=== PATIENT | female | born 1945 | race Caucasian/White ===

== ENCOUNTER 2021-04-30 09:31 | Day surgery (SDC) | payer OTHER ==
[~2021-04-30] VITALS: Ht 167.6 cm; Wt 95.2 kg
[~2021-04-30 09:31] MED LIST: ACET500 PO; AMLO5 PO; ASPI325EC PO; ASPI81CH PO; Aspir 8181 MG PO; BISHYD2.5 PO; BISHYD5 PO; CHOL10002 PO; CHONDROITIN PO; CITA20 PO; CO Q10 200 MG PO; CO Q10200 MG PO; Cholest Off450 MG PO; DICL75ER PO; ERGO400 PO; FLAX PO; FLAX SEED OIL PO; GLUCOSAMINE PO; LUTEIN20 MG PO; METHYLSULFONYLMETHANE PO; MSM500 MG PO; MULTIVITAMIN PO; OPTIFLEX-C400 MG PO; OXYC5 PO; POTASSIUM GLUC500 MG PO; POTASSIUM GLUCONATE PO; TRIPLE FLEX CA1 EACH PO; WOMEN'S DAILY1 EAC2 PO; [UNRECOGNIZED DRUG - REMARK] PO
[2021-04-30] MEDS ORDERED: POTASSIUM GLUCO99 M1 (09:53)
--- NOTE | 2021-04-30 10:04 | NUR ---
04/30/21 1004 DEMETRIUS CHUN PRP DRAWN
--- NOTE | 2021-04-30 11:13 | NUR ---
04/30/21 1113 Zander Back 1 MG EPI ADDED TO EACH OF THE FIRST 3 BAGS OF LR PER ORDER FOR IRRIGATION.
== END 2021-04-30 13:35 | disposition home or self-care (01) ==
LOC: ORSCSDS 09:31
PROVIDERS: Orthopaedic Surgery
PROC: 0RNJ4ZZ Release Right Shoulder Joint, Percutaneous Endoscopic Approach (ICD-10-PCS; principal; 2021-04-30 11:00)
PROC: 0KB50ZZ Excision of Right Shoulder Muscle, Open Approach (ICD-10-PCS; principal; 2021-04-30 11:00)
PROC: 0LQ14ZZ Repair Right Shoulder Tendon, Percutaneous Endoscopic Approach (ICD-10-PCS; principal; 2021-04-30 11:00)
DX: M75.121 Complete rotator cuff tear or rupture of right shoulder, not specified as traumatic (principal); S46.001A Unspecified injury of muscle(s) and tendon(s) of the rotator cuff of right shoulder, initial encounter; M75.21 Bicipital tendinitis, right shoulder; M75.41 Impingement syndrome of right shoulder; M19.011 Primary osteoarthritis, right shoulder; D17.9 Benign lipomatous neoplasm, unspecified; I10 Essential (primary) hypertension; E66.9 Obesity, unspecified; Z68.33 Body mass index [BMI] 33.0-33.9, adult; Z79.899 Other long term (current) drug therapy; Z79.82 Long term (current) use of aspirin
CPT/HCPCS: 88304; C1713; J0171; J0690; J1100; J2001; J2250; J2370; J2405; J2704; J3010; J7120

== ENCOUNTER 2021-07-20 23:14 | Emergency (ER) | payer OTHER ==
[~2021-07-20] VITALS: Ht 165.1 cm; Wt 95.7 kg
[~2021-07-20 23:14] MED LIST changes: +POTASSIUM GLUCO99 M1
[2021-07-20 23:35] LABS: Source, Urine Clean Catch
[2021-07-20 23:41] LABS: Bilirubin, Urine Neg (Neg); Blood, Urine 5+ (Neg); Glucose Qualitative, Urine Neg (Neg); Ketones, Urine 3+ (Neg); Leukocyte Esterase, Urine 2+ (Neg); Nitrite, Urine Neg (Neg); Protein, Urine Neg (Neg); Urobilinogen, Urine NORM (Normal)
[2021-07-20 23:47] LABS: Appearance, Urine Hazy (Clear); Color, Urine Yellow (P-Yellow)
[2021-07-20 23:48] LABS: Bacteria Many /hpf; Squamous Epithelial Cells Few /hpf (Few); White Blood Cells, Urine TNTC /hpf (0-5)
[2021-07-21 01:43] LABS: BASOPHILS ABSOLUTE AUTO 0.03 K/mm3 (0.00-0.23); BASOPHILS PERCENT AUTO 0 % (0-2); EOSINOPHILS ABSOLUTE AUTO 0.04 K/mm3 (0.00-0.68); EOSINOPHILS PERCENT AUTO 0 % (0-6); Hematocrit 39.1 % (33.0-51.0); Hemoglobin 13.7 g/dL (11.5-16.0); IMMATURE GRAN ABSOLUTE AUTO 0.11 K/mm3 (0.00-0.10); IMMATURE GRAN PERCENT AUTO 1 % (0-1); LYMPHOCYTES ABSOLUTE AUTO 1.12 K/mm3 (0.84-5.20); LYMPHOCYTES PERCENT AUTO 7 % (21-46); MONOCYTES ABSOLUTE AUTO 1.08 K/mm3 (0.16-1.47); MONOCYTES PERCENT AUTO 7 % (4-13); Mean Corpuscular HGB 31.5 pg (26.0-34.0); Mean Corpuscular Volume 90 fL (80-100); NEUTROPHILS ABSOLUTE AUTO 13.49 K/mm3 (1.96-9.15); NEUTROPHILS PERCENT AUTO 85 % (41-73); Platelet Count 372 K/mm3 (150-400); RDW Coefficient Variation 13.5 % (11.7-14.2); RDW Standard Deviation 44.7 fL (35.1-46.3); Red Blood Cell Count 4.35 M/mm3 (3.80-5.20); White Blood Cell Count 15.87 K/mm3 (4.00-11.30)
[2021-07-21 01:44] LABS: Albumin, Blood 3.8 g/dL (3.4-5.0); Albumin/Globulin Ratio 1.1 (0.8-1.8); Bilirubin, Total 0.9 mg/dL (0.1-1.0); Calcium, Blood 9.9 mg/dL (8.5-10.1); Creatinine, Blood 2.18 mg/dL (0.40-1.00); Globulin, Blood 3.4 g/dL (2.2-4.0); Potassium, Blood 4.4 mmol/L (3.5-5.5); Total Protein, Blood 7.2 g/dL (6.4-8.2)
[2021-07-21 04:03] LABS: SARS-Cov-2 (COVID-19) PCR, MMC NEGATIVE (NEGATIVE)
== END 2021-07-21 05:35 | disposition short-term general hospital (02) ==
LOC: ER 23:14
PROVIDERS: Emergency Medicine; Physician Assistant
DX: N13.2 Hydronephrosis with renal and ureteral calculous obstruction (principal); N39.0 Urinary tract infection, site not specified; I10 Essential (primary) hypertension; Z20.822 Contact with and (suspected) exposure to COVID-19; Z79.899 Other long term (current) drug therapy; Z79.82 Long term (current) use of aspirin
CPT/HCPCS: 36415; 74176; 80053; 81001; 83605; 85025; 87086; 96365; 96375; 99285-25; J0696; J1885; J2405; U0004

== ENCOUNTER 2022-08-20 06:51 | Day surgery (SDC) | payer OTHER ==
[~2022-08-20] VITALS: Ht 165.1 cm; Wt 95.5 kg
== END 2022-08-20 08:46 | disposition home or self-care (01) ==
LOC: ORSCSDS 06:51
PROVIDERS: Ophthalmology
PROC: 08RJ3JZ Replacement of Right Lens with Synthetic Substitute, Percutaneous Approach (ICD-10-PCS; principal; 2022-08-20 08:00)
DX: H25.11 Age-related nuclear cataract, right eye (principal); H52.201 Unspecified astigmatism, right eye; I10 Essential (primary) hypertension; E66.9 Obesity, unspecified; Z68.34 Body mass index [BMI] 34.0-34.9, adult; Z79.899 Other long term (current) drug therapy
CPT/HCPCS: J2001; J2250; J3010; J3301; J7040; V2632

== ENCOUNTER 2022-09-10 06:44 | Day surgery (SDC) | payer OTHER ==
[~2022-09-10] VITALS: Ht 165.1 cm; Wt 95.5 kg
== END 2022-09-10 08:43 | disposition home or self-care (01) ==
LOC: ORSCSDS 06:44
PROVIDERS: Ophthalmology
PROC: 08RK3JZ Replacement of Left Lens with Synthetic Substitute, Percutaneous Approach (ICD-10-PCS; principal; 2022-09-10 08:00)
DX: H25.12 Age-related nuclear cataract, left eye (principal); H52.202 Unspecified astigmatism, left eye; Z96.1 Presence of intraocular lens; G47.33 Obstructive sleep apnea (adult) (pediatric); I10 Essential (primary) hypertension; M19.90 Unspecified osteoarthritis, unspecified site; Z79.899 Other long term (current) drug therapy; E66.01 Morbid (severe) obesity due to excess calories; Z68.35 Body mass index [BMI] 35.0-35.9, adult
CPT/HCPCS: J2001; J2250; J3010; J3301; J7040; V2632

== ENCOUNTER 2023-10-29 11:57 | Emergency (ER) | payer OTHER ==
[~2023-10-29] VITALS: Ht 165.1 cm; Wt 79.4 kg
[2023-10-29 12:49] LABS: BASOPHILS ABSOLUTE AUTO 0.07 K/mm3 (0.00-0.23); BASOPHILS PERCENT AUTO 1 % (0-2); EOSINOPHILS ABSOLUTE AUTO 0.02 K/mm3 (0.00-0.68); EOSINOPHILS PERCENT AUTO 0 % (0-6); IMMATURE GRAN ABSOLUTE AUTO 0.05 K/mm3 (0.00-0.10); IMMATURE GRAN PERCENT AUTO 0 % (0-1); LYMPHOCYTES ABSOLUTE AUTO 1.58 K/mm3 (0.84-5.20); LYMPHOCYTES PERCENT AUTO 11 % (21-46); MONOCYTES ABSOLUTE AUTO 0.43 K/mm3 (0.16-1.47); MONOCYTES PERCENT AUTO 3 % (4-13); Mean Corpuscular HGB 31.4 pg (26.0-34.0); Mean Corpuscular HGB Conc 33.3 g/dL (31.5-36.5); Mean Corpuscular Volume 94 fL (80-100); Mean Platelet Volume 9.8 fL (9.1-12.4); NEUTROPHILS ABSOLUTE AUTO 11.83 K/mm3 (1.96-9.15); NEUTROPHILS PERCENT AUTO 85 % (41-73); Platelet Count 477 K/mm3 (150-400); RDW Coefficient Variation 13.2 % (11.7-14.2); RDW Standard Deviation 45.8 fL (35.1-46.3); Red Blood Cell Count 3.18 M/mm3 (3.80-5.20); White Blood Cell Count 13.98 K/mm3 (4.00-11.30)
[2023-10-29 13:10] LABS: Albumin, Blood 3.3 g/dL (3.4-5.0); Albumin/Globulin Ratio 1.1 (0.8-1.8); Bilirubin, Total 0.4 mg/dL (0.1-1.0); Bun/Creatinine Ratio 55.9 (12.0-20.0); Calcium, Blood 9.3 mg/dL (8.5-10.1); Creatinine, Blood 0.93 mg/dL (0.40-1.00); Globulin, Blood 3.1 g/dL (2.2-4.0); Potassium, Blood 4.8 mmol/L (3.5-5.5); Total Protein, Blood 6.4 g/dL (6.4-8.2)
[2023-10-29] MEDS ORDERED: ATORVASTATIN CA20 MG PO (14:11)
[2023-10-29 18:00] VITALS: BP 167/75
== END 2023-10-29 18:15 | disposition short-term general hospital (02) ==
LOC: ER 11:57
PROVIDERS: Physician Assistant
DX: D64.9 Anemia, unspecified (principal); R55 Syncope and collapse; I10 Essential (primary) hypertension; D72.829 Elevated white blood cell count, unspecified; G47.33 Obstructive sleep apnea (adult) (pediatric); M19.90 Unspecified osteoarthritis, unspecified site
CPT/HCPCS: 80053; 85025; 93005; 93010; 96365; 96366; 99285-25; C9113

== ENCOUNTER → 2025-10-28 | Outpatient (CLI) | payer OTHER ==
[~2025-10-28] MED LIST changes: +AMOCLA875 PO; +ATORVASTATIN CA20 MG PO; +AZIT500 PO; +B-1100 M1 PO; +BISOPROLOL-HCT1 EACH PO; +FOLI1 PO; +METO50ER PO; +PRED20 PO; +Ultram50 MG PO
== END ==
LOC: LAB SHORT 15:42 → LAB 15:42
DX: N39.0 Urinary tract infection, site not specified (principal)
CPT/HCPCS: 87086